=== PATIENT | female | born 1990 ===

== ENCOUNTER → 2017-01-02 | Outpatient (CLI) | payer OTHER ==
--- NOTE | 2017-01-02 09:28 | DIAGNOSTIC IMAGING REPORT ---
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 TECHNIQUE: Frontal, oblique, and lateral views of the right hand were obtained. COMPARISON: Correlation made to plain radiograph of the left hand performed the same day. FINDINGS: No acute fracture or malalignment. No significant degenerative change. No soft tissue abnormality. IMPRESSION: No osseous abnormality of the right hand. Electronically signed by: Malcolm Bertrand M.D. 01/02/2017 9:27 AM Dictated Date/Time: 01/02/2017 9:22 AM
--- NOTE | 2017-01-02 09:30 | DIAGNOSTIC IMAGING REPORT ---
L HAND MIN 3 VIEWS ROUTINE CLINICAL HISTORY: 26 years-old Female presenting with Z79.899 Methotrexate, prison, current [id number], history of arthritis, bilateral hand pain. TECHNIQUE: Frontal, oblique, and lateral views of the left hand were obtained. COMPARISON: Plain radiographs of the right hand performed the same day. FINDINGS: No acute fracture or malalignment. No significant degenerative change. No radiographic evidence of soft tissue abnormality. IMPRESSION: No osseous abnormality of the left hand. Electronically signed by: Malcolm Bertrand M.D. 01/02/2017 9:29 AM Dictated Date/Time: 01/02/2017 9:28 AM
[2017-01-02 09:32] LABS: BASO % 0.3 %; BASO ABS # 0.02 K/uL (0-0.2); COMPLETE YES; EOS % 4.5 %; HEMATOCRIT 37.2 % (37-47); IG% 0.3 %; LYMPH % 23.9 %; LYMPH ABS # 1.72 K/uL (1.2-3.4); MEAN CELL VOLUME 86.3 fL (80-100); MEAN CORPUSCULAR HGB CONC 33.6 g/dl (32-36); MONO % 5.3 %; NEUT % 65.7 %; PLATELET COUNT 291 K/uL (130-400); RED BLOOD COUNT 4.31 M/uL (4.2-5.4); WHITE BLOOD COUNT 7.19 K/uL (4.8-10.8)
[2017-01-02 10:21] LABS: ALT/SGPT 14 U/L (12-78); AST/SGOT 14 U/L (15-37); CREATININE 0.64 mg/dl (0.60-1.20)
[2017-01-02 10:23] LABS: ALKALINE PHOSPHATASE 76 U/L (45-117); RHEUMATOID FACTOR < 10.0 U/mL (0-15)
== END | disposition home or self-care (01) ==
LOC: C.RAD1850 08:44
PROVIDERS: ATTEND Internal Medicine Rheumatology
DX: Z79.899 Other long term (current) drug therapy (principal)

== ENCOUNTER → 2017-06-22 | Outpatient (CLI) | payer OTHER ==
[2017-06-22 12:20] LABS: BASO % 0.4 %; BASO ABS # 0.03 K/uL (0-0.2); EOS % 2.7 %; HEMATOCRIT 38.5 % (37-47); HEMOGLOBIN 12.6 g/dL (12.0-16.0); IG# 0.01 K/uL (0.00-0.02); LYMPH % 20.2 %; LYMPH ABS # 1.48 K/uL (1.2-3.4); MEAN CELL VOLUME 85.4 fL (80-100); MEAN CORPUSCULAR HEMOGLOBIN 27.9 pg (25-34); MEAN CORPUSCULAR HGB CONC 32.7 g/dl (32-36); MONO % 6.5 %; MONO ABS # 0.48 K/uL (0.11-0.59); NEUT % 70.1 %; NEUT ABS # 5.13 K/uL (1.4-6.5); PLATELET COUNT 310 K/uL (130-400); RED CELL DISTRIBUTION WIDTH CV 13.1 % (11.5-14.5); RED CELL DISTRIBUTION WIDTH SD 40.6 fL (36.4-46.3); WHITE BLOOD COUNT 7.33 K/uL (4.8-10.8)
[2017-06-22 12:29] LABS: ALBUMIN 3.5 gm/dl (3.4-5.0); ALT/SGPT 17 U/L (12-78); AST/SGOT 14 U/L (15-37); CREATININE 0.61 mg/dl (0.60-1.20)
[2017-06-22 12:31] LABS: ALKALINE PHOSPHATASE 66 U/L (45-117); TOTAL PROTEIN 7.3 gm/dl (6.4-8.2)
== END | disposition home or self-care (01) ==
LOC: C.LAB1850 09:50
PROVIDERS: ATTEND Internal Medicine Rheumatology
DX: Z51.81 Encounter for therapeutic drug level monitoring (principal); Z79.899 Other long term (current) drug therapy; M06.9 Rheumatoid arthritis, unspecified